=== PATIENT | female | born 1935 | race Hispanic/Latino ===

== ENCOUNTER 2021-12-09 10:49 | Observation (INO) | payer MEDICARE ==
[2021-12-09] MEDS ORDERED: NITROGLYCERIN 2% OINT 1 GM TP ONE (12:11)
[2021-12-09] MEDS ORDERED: CLOPIDOGREL 300 MG TAB PO ONE (12:12)
--- NOTE | 2021-12-09 12:15 | Emergency Department Report ---
HPI - General Chief Complaint: Chest Pain Time Seen by Provider: 12/09/21 11:52 - HPI HPI: Room 20 Patient is an 86-year-old female present with chief complaint of chest pain. Patient states she was awakened this morning at 04: 00 with substernal chest pressure and shortness of breath. Patient states she developed numbness in her left upper extremity. Patient admits to nausea without vomiting and diaphoresis with her chest pressure. Patient states the chest pressure has been intermittent since the onset and she currently gives it a score of 3/10. Patient has a history of coronary artery disease and has [address] and most recent which was placed 6 years ago. ED Past Medical Hx - Past Medical History Previous Medical History?: Yes Hx Hypertension: Yes Hx CVA: Yes Hx Heart Attack/AMI: Yes Hx Diabetes: Yes Additional medical history: Atrial fibrillation - Surgical History Past Surgical History?: Yes Hx Coronary Stent: Yes (10) - Family History Family history: no significant - Social History Smoking Status: Former Smoker (None since 1990) Substance Use Type: None - Medications Home Medications: Home Medications Medication Instructions Recorded Confirmed Last Taken Type ISOSORBIDE MONOnitrate [Imdur ER] 60 mg PO QDAY 06/25/17 06/25/17 06/24/17 History Insulin NPH/Regular [NovoLIN 70/30] 12 unit SUB-Q BIDDIAB units 06/28/17 Unknown Rx Apixaban [Eliquis] 5 mg PO BID 12/09/21 12/09/21 12/08/21 History Humalog 25 unit SUB-Q DAILY 12/09/21 12/09/21 Unknown History Lasix 40 mg PO DAILY 12/09/21 12/09/21 12/08/21 History Metoprolol 1,000 mg PO BID 12/09/21 12/09/21 12/08/21 History metFORMIN 1,000 mg PO BID 12/09/21 12/09/21 12/08/21 History ED Review of Systems ROS: Stated complaint: CHEST PAIN Other details as noted in HPI Constitutional: diaphoresis Eyes: denies: eye pain ENT: denies: throat pain Respiratory: shortness of breath Cardiovascular: chest pain Endocrine: no symptoms reported Gastrointestinal: nausea. denies: vomiting Genitourinary: denies: dysuria Musculoskeletal: denies: back pain Skin: denies: lesions Neurological: paresthesias. denies: headache Physical Exam - Physical Exam Vital Signs: Vital Signs 12/09/21 11:26 Temperature 97.6 F Pulse Rate 63 Respiratory 16 Rate Blood Pressure 160/65 O2 Sat by Pulse 97 Oximetry Physical Exam: GENERAL: The patient is well-developed well-nourished female lying on stretcher not appearing to be in acute distress. [] HEENT: Normocephalic. Atraumatic. Extraocular motions are intact. Patient has moist mucous membranes. NECK: Supple. Trachea midline CHEST/LUNGS: Clear to auscultation. There is no respiratory distress noted. HEART/CARDIOVASCULAR: Regular. There is no tachycardia. There is no gallop rub or murmur. ABDOMEN: Abdomen is soft, nontender. Patient has normal bowel sounds. There is no abdominal distention. SKIN: There is no rash. There is no edema. There is no diaphoresis. NEURO: The patient is awake, alert, and oriented. The patient is cooperative. The patient has no focal neurologic deficits. The patient has normal speech. GCS 15 MUSCULOSKELETAL: There is no evidence of acute injury. ED Course Vital Signs 12/09/21 11:26 Temperature 97.6 F Pulse Rate 63 Respiratory 16 Rate Blood Pressure 160/65 O2 Sat by Pulse 97 Oximetry - Consultations Consultation #1: 12/09/21 15:00 Case discussed with cardiology micrometers-will evaluate patient ED Medical Decision Making - Lab Data Result diagrams: 12/09/21 12:46 12/09/21 12:46 Laboratory Tests 12/09/21 12/09/21 12/09/21 12:46 12:46 12:46 WBC 6.2 RBC 4.83 Hgb 14.1 Hct 42.4 MCV 88 MCH 29 MCHC 33 RDW 15.1 Plt Count 199 Lymph % (Auto) 21.4 [place] % (Auto) 8.5 H Eos % (Auto) 2.6 Baso % (Auto) 0.5 Lymph # (Auto) 1.3 [place] # (Auto) 0.5 Eos # (Auto) 0.2 Baso # (Auto) 0.0 Seg Neutrophils % 67.0 Seg Neutrophils # 4.1 PT 18.9 H INR 1.41 H APTT 49.5 H VBG pH Sodium 138 Potassium 4.4 Chloride 102.1 Carbon Dioxide 26 Anion Gap 14 BUN 13 Creatinine 0.8 Estimated GFR > 60 BUN/Creatinine Ratio 16 Glucose 86 Calcium 9.5 Total Creatine Kinase 52 CK-MB (CK-2) 1.5 CK-MB (CK-2) Rel Index 2.8 Troponin T < 0.010 12/09/21 12:46 WBC RBC Hgb Hct MCV MCH MCHC RDW Plt Count Lymph % (Auto) [place] % (Auto) Eos % (Auto) Baso % (Auto) Lymph # (Auto) [place] # (Auto) Eos # (Auto) Baso # (Auto) Seg Neutrophils % Seg Neutrophils # PT INR APTT VBG pH 7.317 L Sodium Potassium Chloride Carbon Dioxide Anion Gap BUN Creatinine Estimated GFR BUN/Creatinine Ratio Glucose Calcium Total Creatine Kinase CK-MB (CK-2) CK-MB (CK-2) Rel Index Troponin T - EKG Data -: EKG Interpreted by Me Rate: normal (68 bpm) - EKG Data When compared to previous EKG there are: previous EKG unavailable Interpretation: other (Atrial fibrillation at 68 bpm) - Radiology Data Radiology results: report reviewed (Chest x-ray), image reviewed (Chest x-ray) interpreted by me: Chest x-ray- left lower lobe haziness, no pneumothorax. [facility] [address] [place] [address] XRay Report Signed Patient: EVER SIMPSON MR#: [id number] : 1935 Acct:[id number] Age/Sex: 86 / F ADM Date: 12/09/21 Loc: ED Attending Dr: Ordering Physician: SERGEI HOUSTON MD Date of Service: 12/09/21 Procedure(s): XR chest 1V ap Accession Number(s): [id number] cc: SERGEI HOUSTON MD Fluoro Time In Minutes: XR chest 1V ap INDICATION / CLINICAL INFORMATION: chest pain. COMPARISON: None available. FINDINGS: SUPPORT DEVICES: None. HEART /PULMONARY VASCULATURE: Cardiac enlargement with pulmonary vasculature congestion. LUNGS / PLEURA: Mild increased interstitial markings in the lung bases. No focal airspace consolidation. No sizable pleural effusion or pneumothorax. ADDITIONAL FINDINGS: No significant additional findings. IMPRESSION: 1. Findings indicative of CHF/volume overload with mild interstitial edema. Signer Name: Uli Batista MD Signed: 12/09/2021 1:36 PM Workstation Name: [email or web address] Transcribed By: MAGALY Dictated By: ULI BATISTA MD Electronically Authenticated By: ULI BATISTA MD Signed Date/Time: 12/09/211335 DD/ 34 TD/TT: - Differential Diagnosis ACS, pericarditis, GERD Critical care attestation.: If time is entered above; I have spent that time in minutes in the direct care of this critically ill patient, excluding procedure time. ED Disposition Clinical Impression: Chest pain, CHF exacerbation Disposition: ADMITTED INPATIENT Is pt being admited?: Yes Does the pt Need Aspirin: No Condition: Fair Instructions: Nonspecific Chest Pain, Adult Time of Disposition: 14:22 (Care transferred to hospitalist (Dr. Main)) Heart Score - HEART Score History: Moderately suspicious EKG: Non-specific Age: > 65 Risk factors: > 3 risk factors or hx of atherosclerotic disease Troponin: < normal limit HEART Score: 6 - EKG Read Time Time EKG Completed: 14:14 EKG Read Time: 14:15
[2021-12-09 13:37] LABS: Basophils % (Auto) 0.5 % (0.0-1.8); Eosinophils # (Auto) 0.2 K/mm3 (0.0-0.4); Eosinophils % (Auto) 2.6 % (0.0-4.3); Hematocrit 42.4 % (30.3-42.9); Hemoglobin 14.1 gm/dl (10.1-14.3); Lymphocytes # (Auto) 1.3 K/mm3 (1.2-5.4); Lymphocytes % (Auto) 21.4 % (13.4-35.0); Mean Corpuscular HGB Conc 33 % (30-34); Mean Corpuscular Volume 88 fl (79-97); Monocytes # (Auto) 0.5 K/mm3 (0.0-0.8); Monocytes % (Auto) 8.5 % (0.0-7.3); Platelet Count 199 K/mm3 (140-440); Red Blood Count 4.83 M/mm3 (3.65-5.03); Red Cell Distribution Width 15.1 % (13.2-15.2)
--- NOTE | 2021-12-09 13:40 | XRay Report ---
XR chest 1V ap INDICATION / CLINICAL INFORMATION: chest pain. COMPARISON: None available. FINDINGS: SUPPORT DEVICES: None. HEART /PULMONARY VASCULATURE: Cardiac enlargement with pulmonary vasculature congestion. LUNGS / PLEURA: Mild increased interstitial markings in the lung bases. No focal airspace consolidati on. No sizable pleural effusion or pneumothorax. ADDITIONAL FINDINGS: No significant additional findings. IMPRESSION: 1. Findings indicative of CHF/volume overload with mild interstitial edema. Signer Name: Diomedes Batista MD Signed: 12/09/2021 1:36 PM Workstation Name: [email or web address]
[2021-12-09 13:48] LABS: INR 1.41 (0.87-1.13)
[2021-12-09] MEDS: FUROSEMIDE 40 MG/4 ML INJ IV ONE (13:48)
[2021-12-09 13:50] LABS: Partial Thromboplastin Time 49.5 Sec. (24.2-36.6)
[2021-12-09 14:00] LABS: BUN/Creatinine Ratio 16; Blood Urea Nitrogen 13 mg/dL (7-17); Calcium 9.5 mg/dL (8.4-10.2); Creatine Kinase MB 1.5 ng/mL (0.0-4.0); Hemolysis Index 21
--- NOTE | 2021-12-09 16:10 | Consultation ---
History of Present Illness Consult date: 12/09/21 Requesting physician: SERGEI HOUSTON Consult reason: chest pain History of present illness: Patient is a 86-year-old female with a reported past medical history of coronary artery disease s/p PCI(reports 10 stents) and prior TX,afib on Eliquis as an outpatient, hypertension, TIA, hyperlipidemia, diabetes, who presents to the ED today with a complaint of shortness of breath which started at 4 AM this lennynin g. Patient reports that earlier this morning she woke up from sleep with difficulty breathing. Patient reports that she has been having intermittent shortness of breath since June the last time she saw her hand box folder. She also states since then she has been having lower extremity edema. She reports had some chest tightness which she also described as sharp and worse with deep breathing and palpation. She states she also felt slightly nauseous this morning. Patient was transported to the ED for further evaluation. CXR showed CHF/volume overload. Patient given Lasix while in the ED and reports improvement in her symptoms. Patient states that when she last saw her primary hand box folder he reported possible CHF patient reports shortness of breath, dyspnea on exertion, chronic orthopnea, lower extremity edema, nausea. Patient denies squeezing or crushing chest pain, diaphoresis, vomiting, and patient reports this does not feel like any prior [place] that she has had. Patient follows with Dr. Jose Culp at [facility] however was previously seen by our practice during admission in 2018. Cardiology was consulted for chest pain. Past History Past Medical History: atrial fib, CAD, hypertension, hyperlipidemia, stroke Past Surgical History: hysterectomy, Other (Knee surgery, back surgery, facial) Social history: smoking (Former smoker) Family history: CAD Medications and Allergies Allergies Allergy/AdvReac Type Severity Reaction Status Date / Time codeine Allergy Rash Verified 12/09/21 11:03 ibuprofen [From Motrin] Allergy Rash Verified 12/09/21 11:03 lisinopril Allergy Rash Verified 12/09/21 11:03 meperidine HCl [From Demerol] Allergy Rash Verified 12/09/21 11:03 oxycodone HCl [From Percodan] Allergy Rash Verified 12/09/21 11:03 oxycodone terephthalate Allergy Rash Verified 12/09/21 11:03 [From Percodan] Penicillins Allergy Rash Verified 12/09/21 11:03 prednisone Allergy Rash Verified 12/09/21 11:03 acetaminophen AdvReac Rash Verified 12/09/21 11:03 [From Darvocet-N] diazepam [From Valium] AdvReac Rash Verified 12/09/21 11:03 propoxyphene napsylate AdvReac Rash Verified 12/09/21 11:03 [From Darvocet-N] thread Allergy Unknown Uncoded 12/09/21 11:03 Home Medications Medication Instructions Recorded Confirmed Last Taken Type ISOSORBIDE MONOnitrate [Imdur ER] 60 mg PO QDAY 06/25/17 06/25/17 06/24/17 History Insulin NPH/Regular [NovoLIN 70/30] 12 unit SUB-Q BIDDIAB units 06/28/17 Unknown Rx Apixaban [Eliquis] 5 mg PO BID 12/09/21 12/09/21 12/08/21 History Humalog 25 unit SUB-Q DAILY 12/09/21 12/09/21 Unknown History Lasix 40 mg PO DAILY 12/09/21 12/09/21 12/08/21 History Metoprolol 1,000 mg PO BID 12/09/21 12/09/21 12/08/21 History metFORMIN 1,000 mg PO BID 12/09/21 12/09/21 12/08/21 History Active Meds: Active Medications Apixaban (Apixaban 5 Mg Tab) 5 mg PO Q12HR MICHELLE; Protocol Aspirin (Aspirin 81 Mg Tab Chew) 81 mg PO DAILY MICHELLE Atorvastatin Calcium (Atorvastatin 10 Mg Tab) 10 mg PO QHS MICHELLE Furosemide (Furosemide 40 Mg/4 Ml Inj) 40 mg IV BID MICHELLE Metoprolol Tartrate (Metoprolol Tartrate 50 Mg Tab) 12.5 mg PO BID [facility] Review of Systems Constitutional: no weight loss, no weight gain, no fever Ears, nose, mouth and throat: no sinus pressure, no sinus pain Cardiovascular: orthopnea (Chronic), shortness of breath, dyspnea on exertion, paroxysmal nocturnal dyspnea, leg edema Respiratory: shortness of breath, dyspnea on exertion Gastrointestinal: nausea, no abdominal pain, no vomiting Musculoskeletal: no neck stiffness, no neck pain, no shooting arm pain Integumentary: no rash, no pruritis, no redness Neurological: no head injury, no transient paralysis Psychiatric: no anxiety, no memory loss Endocrine: no cold intolerance, no heat intolerance Hematologic/Lymphatic: no easy bruising, no easy bleeding Physical Examination Vital Signs Temp Pulse Resp BP Pulse Ox 97.6 F 63 16 160/65 97 12/09/21 11:12/09/21 11:12/09/21 11:12/09/21 11:12/09/21 11:26 General appearance: no acute distress HEENT: Positive: PERRL Cardiac: Positive: irregularly irregular Lungs: Positive: Decreased Breath Sounds Neuro: Positive: Grossly Intact Abdomen: Positive: Soft Skin: Negative: Rash, Suspicious Lesions, Ulceration Extremities: Present: edema (Right lower extremity greater than left lower extremity) Results 12/09/21 12:46 12/09/21 12:46 Cardiac Enzymes 12/09/21 Range/Units 12:46 CK-MB (CK-2) 1.5 (0.0-4.0) ng/mL Coagulation 12/09/21 Range/Units 12:46 PT 18.9 H (12.2-14.9) Sec. INR 1.41 H (0.87-1.13) APTT 49.5 H (24.2-36.6) Sec. CBC 12/09/21 Range/Units 12:46 WBC 6.2 (4.5-11.0) K/mm3 RBC 4.83 (3.65-5.03) M/mm3 Hgb 14.1 (10.1-14.3) gm/dl Hct 42.4 (30.3-42.9) % Plt Count 199 (140-440) K/mm3 Lymph # (Auto) 1.3 (1.2-5.4) K/mm3 [place] # (Auto) 0.5 (0.0-0.8) K/mm3 Eos # (Auto) 0.2 (0.0-0.4) K/mm3 Baso # (Auto) 0.0 (0.0-0.1) K/mm3 Comprehensive Metabolic Panel 12/09/21 Range/Units 12:46 Sodium 138 (137-145) mmol/L Potassium 4.4 (3.6-5.0) mmol/L Chloride 102.1 (98-107) mmol/L Carbon Dioxide 26 (22-30) mmol/L BUN 13 (7-17) mg/dL Creatinine 0.8 (0.6-1.2) mg/dL Glucose 86 (65-100) mg/dL Calcium 9.5 (8.4-10.2) mg/dL - Imaging and Cardiology Echo: report reviewed EKG: report reviewed, image reviewed EKG interpretations - Telemetry EKG Rhythm: Atrial Fibrillation - EKG Supraventricular dysrhythmia: atrial fibrillation AV and intraventricular conduction: 1 AV block Repolarization changes or abnormalities: nonspecific abnormality, ST segment, and/or T wave Assessment and Plan Patient is a 86-year-old female with a reported past medical history of coronary artery disease s/p PCI(reports 10 stents) and prior [place],afib on Eliquis as an outpatient, hypertension, TIA, hyperlipidemia, diabetes, who presents to the ED today with a complaint of shortness of breath which started at 4 AM this morning. HFpEF Coronary artery disease s/p PCI A. fib Hypertension Hyperlipidemia History of TIA Diabetes Echo 07/05/2021 Mildly increased left ventricular wall thickness.Left ventricular ejection fraction is 60%. Aortic valve is tricuspid, thickened, focally calcified and non-restricted. Mildly dilated right atrium. Trace mitral valve regurgitation. Mild pulmonic valve insufficiency. Trivial pericardial effusion. Low normal right ventricular systolic function. Mildly enlarged right ventricular cavity size. Dilated inferior vena cava, with respiratory size variation less than 50%. The estimated right ventricular systolic pressure is moderately elevated right ventricular systolic pressure at 52.4 mmHg. PET Stress test 07/11/2019 Abnormal cardiac PET with a partially reversible perfusion defect along the distal anterior septal wall. This is approximately 11% of the myocardium at rest and increases to perhaps 15% at peak stress suggesting lisandra-infarct ischemia. There is a separate completely reversible perfusion defect along the lateral wall consistent with myocardial ischemia. This area represents 20% of the myocardium. Compared to the prior study in 2017 the lisandra-infarct ischemia and the lateral wall ischemia are new findings. Outpatient medications: Eliquis, Lasix 40 mg p.o. daily, metoprolol succinate 50 mg p.o. daily, rosuvastatin 5 mg p.o. nightly Plan: EKG shows A. fib 68 first-degree block. No acute ischemic changes. Troponins negative x1. Repeat troponins pending. Patient currently chest pain-free Patient reports shortness of breath, orthopnea, PND, and CXR shows volume overload agree with Lasix 40 mg IV twice daily for diuresis. Strict I&O's, with close monitoring renal function. BMP in a.m. BNP pending Resume outpatient Eliquis for anticoagulation Patient on rosuvastatin 5 mg p.o. nightly as an outpatient however rosuvastatin not on formulary will initiate atorvastatin 10mg PO QHS Initiate aspirin Patient is first-degree AV block will initiate metoprolol 12.5 mg p.o. twice daily No ANNIKA or ARB due to patient having documented allergy for lisinopril Patient for stress test in the AM. N.p.o. after midnight Patient right lower extremity has more edema than left lower extremity we will check D-dimer and get venous Doppler study Patient in conjunction with Dr. Saha who agrees with plan of care - Patient Problems (1) A-fib Current Visit: Yes Status: Acute (2) CHF exacerbation Current Visit: Yes Status: Acute (3) Chest pain Current Visit: Yes Status: Acute (4) H/O heart artery stent Current Visit: No Status: Acute (5) Hyperlipidemia Current Visit: No Status: Acute (6) Hypertension Current Visit: No Status: Acute (7) CAD (coronary artery disease) Current Visit: No Status: Chronic Qualifiers:
[2021-12-09] MEDS ORDERED: ACETAMINOPHEN 325 MG TAB PO PRN (16:22)
[2021-12-09] MEDS ORDERED: ONDANSETRON 4 MG/2 ML INJ IV PRN (16:22)
[2021-12-09] MEDS ORDERED: MORPHINE 4 MG/1 ML INJ IV PRN (16:22)
[2021-12-09] MEDS ORDERED: ALBUTEROL 2.5 MG/3 ML NEBU IH PRN (16:22)
[2021-12-09] MEDS ORDERED: oxyCODONE /ACETAMINOPHEN 5-325MG TAB PO PRN (16:22)
--- NOTE | 2021-12-09 16:47 | History and Physical Report ---
History of Present Illness Chief complaint: My chest hurts and it is hard to breathe History of present illness: 86 YO Female with CAD S/P Stent Placement, Atrial Fib on Therapeutic Anticoagulation with Eliquis, HTN, HLD, DM, CVA, Obesity Hypoventilation Syndrome, Metabolic Syndrome, Vascular Dementia, Cerebral Atherosclerosis presents to ED for evaluation. Patient reports "my chest hurts and is hard to breathe". Patient states that she experienced a sudden onset of chest pain and shortness of breath that began at 0400 hrs. that awoke her from sleep. Patient states that that the chest pain and shortness of breath was initially intermittent but has become more constant. Patient states that pain is 3-5/10, intermittent, substernal, worsened with exertion, relieved with rest. Patient acknowledges decreased exercise tolerance, dyspnea on exertion, dyspnea at rest, orthopnea, lower extremity edema, as well as paroxysmal nocturnal dyspnea. Patient acknowledges 8 pound weight gain over the past 2 weeks. EMS was notified and upon arrival the patient was found to be in distress and subsequently transported to [facility] for further care and evaluation of the aforementioned symptoms. The patient was seen and evaluated in the emergency department. All lab and imaging studies reviewed. Patient found to have angina, as well as clinical symptoms consistent with new onset CHF. Patient admitted to telemetry and initiated on ACS protocol as well as CHF protocol. Patient denies fever, chills, palpitation, productive cough, skin rash, recent contact, known exposure to COVID-19. Prior admission on 06/25/2017 reviewed. All medication listed at time of admission has been reconciled. Advanced care planning conducted in ED. Cardiology team consulted in ED. Past History Past Medical History: atrial fib, CAD, hypertension, hyperlipidemia, stroke Past Surgical History: hysterectomy, Other (Knee surgery, back surgery, facial) Social history: , smoking (Former smoker) Family history: CAD Medications and Allergies Allergies Allergy/AdvReac Type Severity Reaction Status Date / Time codeine Allergy Rash Verified 12/09/21 11:03 ibuprofen [From Motrin] Allergy Rash Verified 12/09/21 11:03 lisinopril Allergy Rash Verified 12/09/21 11:03 meperidine HCl [From Demerol] Allergy Rash Verified 12/09/21 11:03 oxycodone HCl [From Percodan] Allergy Rash Verified 12/09/21 11:03 oxycodone terephthalate Allergy Rash Verified 12/09/21 11:03 [From Percodan] Penicillins Allergy Rash Verified 12/09/21 11:03 prednisone Allergy Rash Verified 12/09/21 11:03 acetaminophen AdvReac Rash Verified 12/09/21 11:03 [From Darvocet-N] diazepam [From Valium] AdvReac Rash Verified 12/09/21 11:03 propoxyphene napsylate AdvReac Rash Verified 12/09/21 11:03 [From Darvocet-N] thread Allergy Unknown Uncoded 12/09/21 11:03 Home Medications Medication Instructions Recorded Confirmed Last Taken Type ISOSORBIDE MONOnitrate [Imdur ER] 60 mg PO QDAY 06/25/17 06/25/17 06/24/17 History Insulin NPH/Regular [NovoLIN 70/30] 12 unit SUB-Q BIDDIAB units 06/28/17 Unknown Rx Apixaban [Eliquis] 5 mg PO BID 12/09/21 12/09/21 12/08/21 History Humalog 25 unit SUB-Q DAILY 12/09/21 12/09/21 Unknown History Lasix 40 mg PO DAILY 12/09/21 12/09/21 12/08/21 History Metoprolol 1,000 mg PO BID 12/09/21 12/09/21 12/08/21 History metFORMIN 1,000 mg PO BID 12/09/21 12/09/21 12/08/21 History Active Meds: Active Medications Acetaminophen (Acetaminophen 325 Mg Tab) 650 mg PO Q4H PRN PRN Reason: Pain MILD(1-3)/Fever >100.5/GUZMAN Albuterol (Albuterol 2.5 Mg/3 Ml Nebu) 2.5 mg IH Q4HRT PRN PRN Reason: Shortness Of Breath Apixaban (Apixaban 5 Mg Tab) 5 mg PO Q12HR MICHELLE; Protocol Aspirin (Aspirin 81 Mg Tab Chew) 81 mg PO DAILY MICHELLE Atorvastatin Calcium (Atorvastatin 10 Mg Tab) 10 mg PO QHS MICHELLE Famotidine (Famotidine 10 Mg Tab) 10 mg PO BID MICHELLE Furosemide (Furosemide 40 Mg/4 Ml Inj) 40 mg IV BID MICHELLE Metoprolol Tartrate (Metoprolol Tartrate 50 Mg Tab) 12.5 mg PO BID MICHELLE Morphine Sulfate (Morphine 4 Mg/1 Ml Inj) 2 mg IV Q8H PRN PRN Reason: Pain , Severe (7-10) Ondansetron HCl (Ondansetron 4 Mg/2 Ml Inj) 4 mg IV Q8H PRN PRN Reason: Nausea And Vomiting Oxycodone/Acetaminophen (Oxycodone /Acetaminophen 5-325mg Tab) 1 tab PO Q6H PRN PRN Reason: Pain, Moderate (4-6) Sodium Chloride (Sodium Chloride 0.9% 10 Ml Flush Syringe) 10 ml IV BID MICHELLE Sodium Chloride (Sodium Chloride 0.9% 10 Ml Flush Syringe) 10 ml IV PRN PRN PRN Reason: LINE FLUSH Review of Systems Constitutional: weight gain, no weight loss, no fever, no chills Ears, nose, mouth and throat: no ear pain, no tinnitis, no decreased hearing, no nasal congestion Breasts: no change in shape, no swelling, no mass Cardiovascular: chest pain, orthopnea, shortness of breath, dyspnea on exertion, paroxysmal nocturnal dyspnea, high blood pressure, leg edema, decreased exercise tolerance Respiratory: no cough, no cough with sputum, no hemoptysis Gastrointestinal: nausea, no abdominal pain, no vomiting, no diarrhea, no constipation Genitourinary Female: no pelvic pain, no flank pain, no dysuria, no urinary frequency, no urgency Rectal: no pain, no incontinence, no bleeding Musculoskeletal: no neck stiffness, no neck pain, no shooting arm pain Integumentary: no rash, no pruritis, no redness, no sores, no wounds Neurological: no head injury, no transient paralysis, no weakness, no parathesias, no tingling, no syncope Psychiatric: no anxiety, no memory loss, no insomnia, no hypersomnia Endocrine: no cold intolerance, no polyphagia, no excessive thirst, no recent glucocorticoid use Hematologic/Lymphatic: no easy bruising, no easy bleeding, no lymphadenopathy Allergic/Immunologic: no urticaria, no allergic rhinitis, no persistent infections Exam - Constitutional Vitals: Temp Pulse Resp BP Pulse Ox 97.6 F 78 16 153/75 100 12/09/21 11:26 12/09/21 16:41 12/09/21 16:41 12/09/21 16:41 12/09/21 16:41 General appearance: Present: mild distress, obese - EENT Eyes: Present: PERRL ENT: hearing intact, clear oral mucosa - Neck Neck: Present: supple, normal ROM, masses or JVD - Respiratory Respiratory effort: normal Respiratory: bilateral: diminished, rales - Cardiovascular Rhythm: irregularly irregular Heart Sounds: Present: S1 & S2. Absent: rub, click - Extremities Extremities: pulses symmetrical Extremity abnormal: edema Peripheral Pulses: within normal limits - Abdominal General gastrointestinal: Present: soft, non-tender, non-distended, normal bowel sounds Female genitourinary: Present: normal - Integumentary Integumentary: Present: clear, warm, dry - Musculoskeletal Musculoskeletal: gait normal, strength equal bilaterally - Psychiatric Psychiatric: appropriate mood/affect, intact judgment & insight - Neurologic Neurologic: CNII-XII intact, moves all extremities HEART Score - HEART Score EKG: Non-specific Age: > 65 Risk factors: > 3 risk factors or hx of atherosclerotic disease Troponin: Troponin T < 0.010 ng/mL (0.00-0.029) 12/09/21 12:46 Troponin: < normal limit Results - Labs CBC & Chem 7: 12/09/21 17:08 12/09/21 17:08 Labs: Abnormal lab results 12/09/21 12/09/21 12/09/21 Range/Units 12:46 12:46 12:46 Caswell % (Auto) 8.5 H (0.0-7.3) % PT 18.9 H (12.2-14.9) Sec. INR 1.41 H (0.87-1.13) APTT 49.5 H (24.2-36.6) Sec. VBG pH 7.317 L (7.320-7.420) Assessment and Plan - Patient Problems (1) Angina at rest Current Visit: Yes Status: Acute Plan to address problem: ACS protocol: Serial cardiac enzymes, EKG, telemetry monitoring, cardiology team consulted in ED, further care and testing as per cardiology team. Morphine, submental oxygen, nitro, aspirin. (2) CHF (congestive heart failure) Current Visit: Yes Status: Acute Qualifiers: Heart failure type: systolic Heart failure chronicity: acute Qualified Code(s): I50.21 - Acute systolic (congestive) heart failure Plan to address problem: CHF protocol: Strict I's/O, monitor urine output every shift, daily weight, afterload reduction, diuresis with Lasix, blood pressure control, echocardiogram ordered and pending at time of admission, thyroid panel, magnesium level. Cardiology team consulted. (3) Hypertension Current Visit: Yes Status: Acute Qualifiers: Hypertension type: primary hypertension Qualified Code(s): I10 - Essential (primary) hypertension Plan to address problem: Monitor blood pressure every shift, continue medical management. (4) Hyperlipidemia Current Visit: Yes Status: Acute Qualifiers: Hyperlipidemia type: mixed hyperlipidemia Qualified Code(s): E78.2 - Mixed hyperlipidemia Plan to address problem: Low-cholesterol diet, statin therapy, supportive care. (5) A-fib Current Visit: Yes Status: Acute Qualifiers: Atrial fibrillation type: longstanding persistent Qualified Code(s): I48.11 - Longstanding persistent atrial fibrillation Plan to address problem: Rate controlled, continue therapeutic anticoagulation, thyroid panel. (6) Obesity hypoventilation syndrome Current Visit: Yes Status: Acute Plan to address problem: Balanced diet, increase physical activity discharge, outpatient pulmonary follow-up for sleep study. (7) Metabolic syndrome Current Visit: Yes Status: Acute Plan to address problem: Balanced diet, increase physical activity discharge, weight reduction, statin therapy as clinically indicated. (8) Diabetes Current Visit: Yes Status: Acute Plan to address problem: Consistent carbohydrate diet, Accu-Chek, insulin protocol, hypoglycemia protocol. (9) Vascular dementia Current Visit: Yes Status: Acute Qualifiers: Dementia behavioral disturbance: without behavioral disturbance Qualified Code(s): F01.50 - Vascular dementia without behavioral disturbance Plan to address problem: We will planning however redirection, benzodiazepine therapy as clinically indicated, supportive care. (10) Cerebral atherosclerosis Current Visit: Yes Status: Acute Plan to address problem: For prompt, verbal redirection, antiplatelet therapy as clinically indicated. (11) DVT prophylaxis Current Visit: Yes Status: Acute Plan to address problem: SCD to bilateral lower extremities while in bed, continue therapeutic anticoagulation. (12) Advance care planning Current Visit: Yes Status: Acute Plan to address problem: Disease education conducted, care plan discussed, diagnosis discussed, prognosis discussed, patient is full code. Patient knowledges understanding and agreement with care plan, +30 minutes. (13) Preventative health care Current Visit: Yes Status: Acute Plan to address problem: Patient counseled regarding risk factor reduction, balanced diet, weight red uction, home safety precautions, patient counseled regarding outpatient follow- up with primary care physician regarding all age and risk factor appropriate screening test. +30 minutes.
--- NOTE | 2021-12-09 17:05 | Vascular Lab Report ---
DUPLEX DOPPLER LOWER EXTREMITY VEINS, BILATERAL INDICATION / CLINICAL INFORMATION: Rule out DVT. Chest pain. TECHNIQUE: Duplex doppler imaging was performed through the veins of both lower extremities using venous chandrika courtney and other maneuvers. COMPARISON: None available. FINDINGS: RIGHT COMMON FEMORAL VEIN: Negative. RIGHT FEMORAL VEIN: Negative. RIGHT POPLITEAL VEIN: Negative. RIGHT CALF VEINS: Negative. LEFT COMMON FEMORAL VEIN: Negative. LEFT FEMORAL VEIN: Negative. LEFT POPLITEAL VEIN: Negative. LEFT CALF VEINS: Negative. ADDITIONAL FINDINGS: None. IMPRESSION: 1. No sonographic evidence for DVT in either lower extremity. Signer Name: Chacorta Vasquez MD Signed: 12/09/2021 5:00 PM Workstation Name: [id number]
[2021-12-09 17:36] LABS: Hematocrit 48.2 % (30.3-42.9); Hemoglobin 15.5 gm/dl (10.1-14.3); Mean Corpuscular HGB Conc 32 % (30-34); Mean Corpuscular Volume 90 fl (79-97); Platelet Count 198 K/mm3 (140-440); Red Blood Count 5.38 M/mm3 (3.65-5.03); Red Cell Distribution Width 15.7 % (13.2-15.2)
[2021-12-09] MEDS: FUROSEMIDE 40 MG/4 ML INJ IV SCH ×2 (18:14→22:57)
[2021-12-09 20:34] LABS: INR 1.01 (0.87-1.13)
[2021-12-09 20:59] LABS: Free T4 (Free Thyroxine) 1.4 ng/dL (0.76-1.46)
[2021-12-09] MEDS ORDERED: NON-FORMULARY EACH (Apixaban 5 MG Tablet) PO SCH (22:00)
[2021-12-09] MEDS: FAMOTIDINE 10 MG TAB PO SCH (22:57)
[2021-12-09] MEDS: APIXABAN 5 MG TAB PO SCH (22:57)
[2021-12-09] MEDS: METOPROLOL TARTRATE 50 MG TAB PO SCH (22:57)
[2021-12-10 05:47] LABS: Calcium 9.5 mg/dL (8.4-10.2)
[2021-12-10] MEDS: FAMOTIDINE 10 MG TAB PO SCH (09:11)
[2021-12-10] MEDS: APIXABAN 5 MG TAB PO SCH (09:11)
[2021-12-10 09:14] VITALS: BP 143/62
[2021-12-10] MEDS: METOPROLOL TARTRATE 50 MG TAB PO SCH (09:16)
[2021-12-10] MEDS: FUROSEMIDE 40 MG/4 ML INJ IV SCH (09:21)
[2021-12-10] MEDS ORDERED: ASPIRIN 81 MG TAB CHEW PO SCH (10:00)
[2021-12-10] MEDS ORDERED: FUROSEMIDE 40 MG TAB PO SCH (10:00)
--- NOTE | 2021-12-10 10:01 | Progress Note ---
Assessment and Plan Patient is a 86-year-old female with a reported past medical history of coronary artery disease s/p PCI(reports 10 stents) and prior SC,afib on Eliquis as an outpatient, hypertension, TIA, hyperlipidemia, diabetes, who presents to the ED today with a complaint of shortness of breath which started at 4 AM this morning. HFpEF Coronary artery disease s/p PCI A. fib Hypertension Hyperlipidemia History of TIA Diabetes Echo 07/05/2021 Mildly increased left ventricular wall thickness.Left ventricular ejection fraction is 60%. Aortic valve is tricuspid, thickened, focally calcified and non-restricted. Mildly dilated right atrium. Trace mitral valve regurgitation. Mild pulmonic valve insufficiency. Trivial pericardial effusion. Low normal right ventricular systolic function. Mildly enlarged right ventricular cavity size. Dilated inferior vena cava, with respiratory size variation less than 50%. The estimated right ventricular systolic pressure is moderately elevated right ventricular systolic pressure at 52.4 mmHg. PET Stress test 07/11/2019 Abnormal cardiac PET with a partially reversible perfusion defect along the distal anterior septal wall. This is approximately 11% of the myocardium at rest and increases to perhaps 15% at peak stress suggesting lisandra-infarct ischemia. There is a separate completely reversible perfusion defect along the lateral wall consistent with myocardial ischemia. This area represents 20% of the myocardium. Compared to the prior study in 2017 the lisandra-infarct ischemia and the lateral wall ischemia are new findings. Outpatient medications: Eliquis, Lasix 40 mg p.o. daily, metoprolol succinate 50 mg p.o. daily, rosuvastatin 5 mg p.o. nightly Plan: EKG shows sinus 68 first-degree block. No acute ischemic changes. Troponins negative x2. AMI ruled out. Patient currently chest pain-free Patient reports significant improvement this a.m. patient appears euvolemic on exam. Stop diuresis with Lasix 40 mg IV and convert to Lasix 40 mg p.o. daily Continue Eliquis for anticoagulation Continue aspirin and statin Telemetry reviewed patient in A. fib rate trending 90s to low 100s. Metoprolol 12.5 mg p.o. twice daily and convert to outpatient metoprolol succinate 50 mg p.o. daily No ANNIKA or ARB due to patient having documented allergy for lisinopril Patient refused stress test this a.m. patient had negative troponinsx2, no acute ischemic changes on EKG, and currently chest pain-free. Will defer to primary box car bracer for outpatient ischemic eval D-dimer negative and Doppler studies negative for DVT Plan of care discussed with patient who verbalized understanding and acknowledgment Cardiac status otherwise stable for discharge Patient should follow with her primary box car bracer in 1 to 2 weeks after discharge Patient in conjunction with Dr. Saha who agrees with plan of care - Patient Problems (1) A-fib Current Visit: Yes Status: Acute Qualifiers: Atrial fibrillation type: longstanding persistent Qualified Code(s): I48.11 - Longstanding persistent atrial fibrillation (2) Chest pain Current Visit: Yes Status: Acute (3) H/O heart artery stent Current Visit: No Status: Acute (4) Hyperlipidemia Current Visit: No Status: Acute (5) Hypertension Current Visit: No Status: Acute (6) CAD (coronary artery disease) Current Visit: No Status: Chronic Qualifiers: (7) Acute on chronic diastolic (congestive) heart failure Current Visit: Yes Status: Acute Subjective Date of service: 12/10/21 Principal diagnosis: Chest pain, acute on chronic diastolic dysfunction Interval history: Patient resting in bed in no acute distress. Patient reports significant improvement in her symptoms. Patient refused stress test this a.m. A. fib 90s to 100s Objective Vital Signs Temp Pulse Resp BP BP Pulse Ox 12/10/21 09:25 95 12/10/21 09:20 82 143/62 12/10/21 09:16 82 143/62 12/10/21 09:13 97.8 F 82 18 143/62 99 12/10/21 05:33 80 12/10/21 03:58 97.7 F 83 18 136/53 94 12/10/21 02:10 176/80 96 12/10/21 00:34 95 12/09/21 22:57 77 162/70 12/09/21 22:20 176/80 89 12/09/21 22:10 176/80 81 L 12/09/21 22:00 97.9 F 88 18 176/80 162/70 82 L 12/09/21 21:52 176/80 86 12/09/21 21:40 176/80 91 12/09/21 21:34 0 L 12/09/21 21:33 86 12/09/21 21:30 176/80 87 12/09/21 21:20 176/80 87 12/09/21 21:10 176/80 87 12/09/21 21:00 176/80 87 12/09/21 20:50 176/80 88 12/09/21 20:40 176/80 90 12/09/21 20:30 176/80 88 12/09/21 20:20 23 176/80 88 12/09/21 20:10 13 176/80 86 12/09/21 20:00 25 H 176/80 93 12/09/21 19:50 14 176/80 12/09/21 19:40 16 176/80 12/09/21 19:30 11 L 176/80 85 12/09/21 19:20 20 176/80 81 L 12/09/21 19:15 77 15 176/88 99 12/09/21 19:10 22 176/80 84 12/09/21 19:00 18 176/80 12/09/21 18:50 16 176/80 12/09/21 18:40 25 H 176/80 12/09/21 18:30 11 L 176/80 98 12/09/21 18:20 19 176/80 98 12/09/21 18:10 17 176/80 97 12/09/21 18:00 21 176/80 99 12/09/21 17:50 15 176/80 100 12/09/21 17:40 20 176/80 97 12/09/21 17:30 14 176/80 96 12/09/21 17:22 15 176/80 97 12/09/21 17:16 20 176/80 98 12/09/21 17:10 176/80 92 12/09/21 16:41 78 16 153/75 100 12/09/21 16:20 85 16 12/09/21 16:16 82 17 12/09/21 16:00 80 15 176/80 12/09/21 15:46 78 22 176/80 12/09/21 15:30 94 H 16 176/80 12/09/21 15:16 80 13 176/80 12/09/21 15:14 79 16 176/80 98 12/09/21 15:00 79 17 175/86 99 12/09/21 14:46 84 19 177/110 97 12/09/21 14:30 77 18 165/77 96 12/09/21 14:24 70 15 165/77 98 12/09/21 14:16 166/103 98 12/09/21 14:00 86 15 160/77 98 12/09/21 13:46 68 20 154/66 98 12/09/21 13:30 63 17 153/75 97 12/09/21 13:16 63 13 156/79 98 12/09/21 13:10 77 10 L 156/79 98 12/09/21 13:00 67 24 160/89 97 12/09/21 12:46 73 15 144/68 97 12/09/21 12:30 69 20 159/71 98 12/09/21 12:25 61 159/71 12/09/21 12:17 77 12 134/60 98 12/09/21 12:15 77 17 134/60 97 12/09/21 12:14 99 12/09/21 12:00 75 13 98 12/09/21 11:46 74 11 L 97 12/09/21 11:33 11 L 12/09/21 11:26 97.6 F 63 16 160/65 97 - Physical Examination General: No Apparent Distress HEENT: Positive: PERRL Cardiac: Positive: irregularly irregular Lungs: Positive: Normal Breath Sounds Neuro: Positive: Grossly Intact Abdomen: Positive: Soft Skin: Negative: Rash, Suspicious Lesions, Ulceration Extremities: Present: upper extr. pulses, edema (Right lower extremity greater than left lower extremity) - Labs and Meds Cardiac Enzymes 12/09/21 Range/Units 12:46 CK-MB (CK-2) 1.5 (0.0-4.0) ng/mL Coagulation 12/09/21 12/09/21 Range/Units 12:46 20:05 PT 18.9 H 14.4 (12.2-14.9) Sec. INR 1.41 H 1.01 (0.87-1.13) APTT 49.5 H 31.0 (24.2-36.6) Sec. CBC 12/09/21 12/09/21 Range/Units 12:46 17:08 WBC 6.2 7.6 (4.5-11.0) K/mm3 RBC 4.83 5.38 H (3.65-5.03) M/mm3 Hgb 14.1 15.5 H (10.1-14.3) gm/dl Hct 42.4 48.2 H (30.3-42.9) % Plt Count 199 198 (140-440) K/mm3 Lymph # (Auto) 1.3 (1.2-5.4) K/mm3 Pepin # (Auto) 0.5 (0.0-0.8) K/mm3 Eos # (Auto) 0.2 (0.0-0.4) K/mm3 Baso # (Auto) 0.0 (0.0-0.1) K/mm3 Comprehensive Metabolic Panel 12/09/21 12/09/21 12/10/21 Range/Units 12:46 17:08 05:07 Sodium 138 140 (137-145) mmol/L Potassium 4.4 3.7 (3.6-5.0) mmol/L Chloride 102.1 96.3 L (98-107) mmol/L Carbon Dioxide 26 29 (22-30) mmol/L BUN 13 17 (7-17) mg/dL Creatinine 0.8 0.7 1.0 (0.6-1.2) mg/dL Glucose 86 208 H (65-100) mg/dL Calcium 9.5 9.5 (8.4-10.2) mg/dL - Imaging and Cardiology EKG: report reviewed, image reviewed Echo: report reviewed - Telemetry EKG Rhythm: Atrial Fibrillation - EKG Supraventricular dysrhythmia: atrial fibrillation AV and intraventricular conduction: 1 AV block Repolarization changes or abnormalities: nonspecific abnormality, ST segment, and/or T wave
[2021-12-10] MEDS ORDERED: METOPROLOL SUCCINATE XL 25 MG TAB PO SCH (10:08)
[2021-12-10] MEDS ORDERED: METOPROLOL TARTRATE 25 MG TAB PO NR (10:30)
[2021-12-10] MEDS ORDERED: METOPROLOL TARTRATE 25 MG TAB PO ONE ×2 (10:30→22:00)
--- NOTE | 2021-12-10 11:52 | Discharge Summary ---
Providers - Providers Date of Admission: 12/09/21 16:22 Date of discharge: 12/10/21 Attending physician: LASHELL ABDALLA MD 12/09/21 16:05 Consult to Physician [CONS] Routine Comment: Consulting Provider: PABLITO ROE Physician Instructions: Reason For Exam: chest pain Primary care physician: BRETT HUITRON Hospitalization Reason for admission: CHF exacerbation Condition: Fair Hospital course: Patient is 86-year-old female with history of coronary artery disease status post stent placement, atrial fibrillation on therapeutic anticoagulation with Eliquis, hypertension and diabetes who presented with chest pain and shortness of breath. He was admitted for ACS rule out and cardiology was consulted. Her symptoms improved with Lasix. Stress test was ordered and patient refused. Lower extremity Doppler was negative for DVT bilaterally. Patient was discharged with instructions to follow-up with her primary injection molding technician. Disposition: 01 HOME / SELF CARE / HOMELESS Final Discharge Diagnosis (Prints w/discharge instructions): Acute on chronic heart failure with preserved ejection fraction. Atrial fibrillation. Hypertension. Coronary artery disease status post PCI. Hyperlipidemia. History of TIA. Type 2 diabetes Time spent for discharge: 30 minutes Core Measure Documentation - Palliative Care Palliative Care/ Comfort Measures: Not Applicable - Core Measures Any of the following diagnoses?: heart failure - Heart Failure Discharge Requirements ANNIKA/ARB for LVSD if EF <40%: Not Applicable Beta judy at discharge: Yes Exam - Physical Exam Narrative exam: GENERAL: Well-developed well-nourished. Sitting on the side of the bed in no acute distress. HEENT: Normocephalic. Atraumatic. NECK: Supple. CHEST/LUNGS: CTAB on room air HEART/CARDIOVASCULAR: RRR. No murmur, rubs or gallops appreciated. ABDOMEN: +BS. NT/ND. SKIN: No rashes noted. NEURO: No focal motor deficit. Follows all commands and is ambulatory. MUSCULOSKELETAL: No joint effusion EXTREMITIES: No cyanosis, cubbing or edema. PSYCH: Cooperative. - Constitutional Vitals: Temp Pulse Resp BP Pulse Ox 97.8 F 82 18 143/62 95 12/10/21 09:13 12/10/21 09:20 12/10/21 09:13 12/10/21 09:20 12/10/21 09:25 Plan Care Plan Goals: Please make sure to follow-up with your injection molding technician outpatient. Please resume taking all your medications. We have sent refills to your preferred pharmacy. Follow up with: BRETT HUITRON MD [Primary Care Provider] - 3-5 Days Prescriptions: AtorvaSTATin 10 mg PO QHS 30 Days #30 tablet Aspirin [Aspirin BABY CHEW TAB] 81 mg PO DAILY 30 Days #30 tab.chew ISOSORBIDE MONOnitrate [Imdur ER] 60 mg PO QDAY 30 Days #30 tab Furosemide [Lasix TAB] 40 mg PO QDAY 30 Days #30 tablet Metoprolol Xl [Metoprolol SUCCINATE ER TAB] 50 mg PO QDAY 30 Days #30 tablet
[2021-12-11] MEDS ORDERED: METOPROLOL SUCCINATE XL 50 MG TAB PO SCH (10:00)
[2021-12-11] MEDS ORDERED: METOPROLOL SUCCINATE XL 25 MG TAB PO SCH (10:00)
--- NOTE | 2021-12-12 18:45 | Electrocardiograph Report ---
[facility] Test Date: 2021-12-09 Test Time: 14:14:37 Pat Name: EVER SIMPSON Department: Room: A470 1 Gender: F Physiotherapy Practice Manager: KISHOR : 1935 Requested By: SERGEI HOUSTON Order Number: [id number] Reading MD: Logan Ball Measurements Intervals [place] Rate: 68 P: [place]: QRS: -47 QRSD: 105 T: 94 QT: 430 QTc: 456 Interpretive Statements Atrial fibrillation LAD, consider left anterior fascicular block Nonspecific T abnormalities, lateral leads No previous ECG available for comparison Electronically Signed On 12-12-2021 18:45:16 EDT by Logan Ball
== END 2021-12-10 16:08 | disposition home or self-care (01) ==
LOC: ED 10:49 → INTOOBSV 16:22 → 4A 16:22
PROVIDERS: ADMIT Internal Medicine; ATTEND Student in an Organized Health Care Education/Training Program
DX: I20.0 Unstable angina (principal); I11.0 Hypertensive heart disease with heart failure; I50.33 Acute on chronic diastolic (congestive) heart failure; I48.11 Longstanding persistent atrial fibrillation; E78.2 Mixed hyperlipidemia; E66.2 Morbid (severe) obesity with alveolar hypoventilation; E88.81 Metabolic syndrome and other insulin resistance; E11.9 Type 2 diabetes mellitus without complications; F01.50 Vascular dementia, unspecified severity, without behavioral disturbance, psychotic disturbance, mood disturbance, and anxiety; I67.2 Cerebral atherosclerosis; Z68.36 Body mass index [BMI] 36.0-36.9, adult; Z86.73 Personal history of transient ischemic attack (TIA), and cerebral infarction without residual deficits; Z90.710 Acquired absence of both cervix and uterus; Z79.899 Other long term (current) drug therapy; Z98.890 Other specified postprocedural states; Z87.891 Personal history of nicotine dependence; Z79.4 Long term (current) use of insulin; Z79.84 Long term (current) use of oral hypoglycemic drugs; Z79.82 Long term (current) use of aspirin; Z95.1 Presence of aortocoronary bypass graft
CPT/HCPCS: 36415; 71045; 80048; 82550; 82553; 82565; 82805; 83735; 83880; 84439; 84443; 84484; 85025; 85027; 85379; 85610; 85730; 93005; 93970; 96374; 96376; 99285; G0378; J1940